=== PATIENT | female | born 1940 | race Asian ===

== ENCOUNTER 2023-01-25 19:00 | Inpatient (IN) | payer MEDICARE, MEDICAID ==
[~2023-01-25] VITALS: Ht 160 cm; Wt 64.0 kg
[2023-01-25 19:30] VITALS: BP 139/88; PULSE 63; RESP 18; TEMP 97.7
[2023-01-25 20:00] VITALS: BP 139/88; PULSE 18; RESP 18; TEMP 97.7
[2023-01-25] MEDS: DICLOFENAC SODIUM 1% GEL 50GM TOP SCH (21:00)
[2023-01-25] MEDS ORDERED: ACETAMINOPHEN 650MG SUPP PR PRN (21:00)
[2023-01-25] MEDS ORDERED: CLONIDINE 0.1MG TABLET PO PRN (21:00)
[2023-01-25] MEDS: AMPICILLIN 2,000 MG in SODIUM CHLORIDE 0.9% 100 ML IV SCH (22:00)
[2023-01-25] MEDS: PANTOPRAZOLE 40MG DR TABLET PO SCH (22:00)
[2023-01-26 00:17] VITALS: PULSE 87; RESP 16; O2SAT 97
[2023-01-26] MEDS: IPRATROPIUM/ALBUTEROL 0.5-3(2.5)MG/3ML NEB HHN SCH ×5 (00:17→21:33)
[2023-01-26] MEDS: AMPICILLIN 2,000 MG in SODIUM CHLORIDE 0.9% 100 ML IV SCH ×3 (06:08→21:16)
[2023-01-26 06:48] LABS: HEMATOCRIT. 33.3 % (36.0-48.0); HEMOGLOBIN. 11.5 g/dL (12.0-16.0); MEAN CORPUSCULAR HEMOGLOBIN 32.1 pg (28.0-32.0); MEAN CORPUSCULAR HGB CONC 34.5 g/dL (31.0-37.0); PLATELET 217 x1000/uL (130-400); RED BLOOD CELL COUNT 3.58 mill/uL (4.2-5.4); RED CELL DISTRIBUTION WIDTH 13.2 % (11.6-14.6); WHITE BLOOD COUNT 16.6 x1000/uL (4.5-11.0)
[2023-01-26 06:53] LABS: DIFFERENTIAL COMMENT 1
[2023-01-26 07:19] LABS: CHLORIDE 107 mEq/L (98-107); INDEX HEMOLYSI 1 (1-3); INDEX ICTERIC 1 (1-4); INDEX LIPEMIC 1 (1-3); POTASSIUM 3.5 mEq/L (3.5-5.1); SODIUM 139 mEq/L (136-145)
[2023-01-26 07:26] LABS: ALANINE AMINOTRANSFERASE 31 IU/L (13-61); ALBUMIN 1.9 g/dL (3.4-5.0); ASPARTATE AMINOTRANSFERASE 19 IU/L (15-37); BILIRUBIN TOTAL 0.9 mg/dL (0.1-1.0); CALCIUM 8.1 mg/dL (8.5-10.1); CARBON DIOXIDE 29 mEq/L (21-32); CREATININE 0.8 mg/dL (0.6-1.3); GLUCOSE 67 mg/dL (70-105); PREALBUMIN 17.7 mg/dL (20.0-40.0); PROTEIN TOTAL 4.8 g/dL (6.0-8.3); UREA NITROGEN BLOOD 26 mg/dL (7-21)
[2023-01-26 08:00] VITALS: BP 148/64; PULSE 69; RESP 18; TEMP 97.2
[2023-01-26] MEDS: PANTOPRAZOLE 40MG DR TABLET PO SCH ×2 (08:00→20:56)
[2023-01-26] MEDS: ENOXAPARIN 30MG/0.3ML SYR SUBCUT SCH (09:00)
[2023-01-26] MEDS: CALCITONIN,SALMON, 3.7 ML NASAL SPRAY ONENSTRL SCH (09:00)
[2023-01-26] MEDS: PREDNISONE 20MG TABLET PO SCH (09:00)
[2023-01-26] MEDS: ACETAMINOPHEN 500MG TABLET PO SCH ×3 (09:00→15:34)
[2023-01-26] MEDS: DICLOFENAC SODIUM 1% GEL 50GM TOP SCH ×4 (09:00→21:16)
[2023-01-26] MEDS: CALCIUM CARBONATE/VITAMIN D3 500MG TABLET PO SCH (09:00)
[2023-01-26] MEDS: LIDOCAINE 5% PATCH TOP SCH (09:00)
[2023-01-26] MEDS: TRAMADOL 50MG TABLET PO PRN (09:35)
[2023-01-26 09:55] VITALS: PULSE 65; RESP 16; O2SAT 98
[2023-01-26] MEDS ORDERED: METHYLPREDNISOLONE SOD SUCC 40MG/ML (ACT-O-VIAL) IV NR (12:00)
[2023-01-26] MEDS ORDERED: NALOXONE HCL 0.4MG/ML VIAL IV PRN (13:15)
[2023-01-26 13:43] VITALS: PULSE 75; RESP 16; O2SAT 97
[2023-01-26] MEDS: BUDESONIDE 0.5MG/2ML NEB HHN SCH ×2 (13:43→21:31)
[2023-01-26 15:45] LABS: PLATELET ESTIMATE NORMAL
[2023-01-26 20:00] VITALS: BP 143/66; PULSE 64; RESP 20; TEMP 97.8
[2023-01-26] MEDS: MONTELUKAST SODIUM 10MG TABLET PO SCH (20:57)
[2023-01-26 21:31] VITALS: PULSE 65; RESP 16; O2SAT 97
[2023-01-27] VITALS (9 sets, daily range): BP systolic 130–140; BP diastolic 52–62; PULSE 60–86; RESP 16–18; TEMP 96.2–97.7; O2SAT 96–99
[2023-01-27] MEDS: IPRATROPIUM/ALBUTEROL 0.5-3(2.5)MG/3ML NEB HHN SCH ×7 (00:21→23:58)
[2023-01-27 05:32] LABS: INDEX HEMOLYSI 1 (1-3)
[2023-01-27 05:35] LABS: AMMONIA 22 uMol/L (<32)
[2023-01-27 06:21] LABS: HEMATOCRIT. 34.1 % (36.0-48.0); HEMOGLOBIN. 11.7 g/dL (12.0-16.0); MEAN CORPUSCULAR HEMOGLOBIN 32.1 pg (28.0-32.0); MEAN CORPUSCULAR HGB CONC 34.3 g/dL (31.0-37.0); MEAN CORPUSCULAR VOLUME 93.7 fL (81.0-99.0); MEAN PLATELET VOLUME 8.3 fl (7.4-10.4); PLATELET 257 x1000/uL (130-400); RED BLOOD CELL COUNT 3.64 mill/uL (4.2-5.4); RED CELL DISTRIBUTION WIDTH 13.9 % (11.6-14.6); WHITE BLOOD COUNT 15.2 x1000/uL (4.5-11.0)
[2023-01-27 06:27] LABS: CHLORIDE 105 mEq/L (98-107); INDEX HEMOLYSI 1 (1-3); INDEX ICTERIC 1 (1-4); INDEX LIPEMIC 1 (1-3); SODIUM 138 mEq/L (136-145)
[2023-01-27 06:28] LABS: DIFFERENTIAL COMMENT 1
[2023-01-27 06:47] LABS: ALANINE AMINOTRANSFERASE 28 IU/L (13-61); ALBUMIN 2.1 g/dL (3.4-5.0); ASPARTATE AMINOTRANSFERASE 11 IU/L (15-37); BILIRUBIN TOTAL 1.1 mg/dL (0.1-1.0); CALCIUM 8.4 mg/dL (8.5-10.1); CARBON DIOXIDE 27 mEq/L (21-32); CREATININE 0.9 mg/dL (0.6-1.3); GLUCOSE 91 mg/dL (70-105); IRON 26 ug/dL (50-175); PROTEIN TOTAL 5.2 g/dL (6.0-8.3); THYROID STIMULATING HORMONE 0.37 uIU/mL (0.36-3.74); TOTAL IRON BINDING CAPACITY 193 ug/dL (250-450); UREA NITROGEN BLOOD 29 mg/dL (7-21)
[2023-01-27] MEDS: AMPICILLIN 2,000 MG in SODIUM CHLORIDE 0.9% 100 ML IV SCH ×3 (06:47→21:41)
[2023-01-27 07:42] LABS: VITAMIN B12 SERUM >2000 pg/mL pg/mL (211-911)
[2023-01-27] MEDS: BUDESONIDE 0.5MG/2ML NEB HHN SCH ×2 (08:13→21:13)
[2023-01-27] MEDS: CALCIUM CARBONATE/VITAMIN D3 500MG TABLET PO SCH (08:38)
[2023-01-27] MEDS: DICLOFENAC SODIUM 1% GEL 50GM TOP SCH ×4 (08:38→21:41)
[2023-01-27] MEDS: ENOXAPARIN 30MG/0.3ML SYR SUBCUT SCH (08:38)
[2023-01-27] MEDS: CALCITONIN,SALMON, 3.7 ML NASAL SPRAY ONENSTRL SCH (08:38)
[2023-01-27] MEDS: LIDOCAINE 5% PATCH TOP SCH (08:39)
[2023-01-27] MEDS: ACETAMINOPHEN 500MG TABLET PO SCH ×3 (08:39→16:37)
[2023-01-27] MEDS: PREDNISONE 20MG TABLET PO SCH (08:39)
[2023-01-27] MEDS: PANTOPRAZOLE 40MG DR TABLET PO SCH (08:39)
[2023-01-27] MEDS ORDERED: LACTULOSE 20G/30ML UDC PO PRN (13:00)
[2023-01-27] MEDS ORDERED: BISACODYL 10MG SUPP PR PRN (13:00)
[2023-01-27] MEDS ORDERED: MAGNESIUM HYDROXIDE 400MG/5ML 30ML UDC PO PRN (13:00)
[2023-01-27 14:36] LABS: FOLIC ACID (FOLATE) SERUM > 20.00 ng/mL (>5.38); INDEX HEMOLYSI 1 (1-3)
[2023-01-27] MEDS: MONTELUKAST SODIUM 10MG TABLET PO SCH (17:00)
[2023-01-27] MEDS: DOCUSATE SODIUM 100MG CAPSULE PO SCH (17:00)
[2023-01-27 17:46] LABS: PLATELET ESTIMATE NORMAL
[2023-01-27 18:44] LABS: FERRITIN 424 ng/mL (10-291)
[2023-01-27] MEDS: SENNOSIDES 8.6MG TABLET PO SCH (21:00)
[2023-01-28] VITALS (7 sets, daily range): BP systolic 13–129; BP diastolic 57–59; PULSE 69–80; RESP 17–20; TEMP 97.4–99; O2SAT 95–99
[2023-01-28] MEDS: IPRATROPIUM/ALBUTEROL 0.5-3(2.5)MG/3ML NEB HHN SCH ×5 (04:34→21:58)
[2023-01-28] MEDS: AMPICILLIN 2,000 MG in SODIUM CHLORIDE 0.9% 100 ML IV SCH ×3 (06:53→22:56)
[2023-01-28] MEDS: BUDESONIDE 0.5MG/2ML NEB HHN SCH ×2 (07:38→21:58)
[2023-01-28] MEDS: CALCITONIN,SALMON, 3.7 ML NASAL SPRAY ONENSTRL SCH (09:00)
[2023-01-28] MEDS: ENOXAPARIN 30MG/0.3ML SYR SUBCUT SCH (09:27)
[2023-01-28] MEDS: ACETAMINOPHEN 500MG TABLET PO SCH ×3 (09:27→17:31)
[2023-01-28] MEDS: DOCUSATE SODIUM 100MG CAPSULE PO SCH ×2 (09:27→17:31)
[2023-01-28] MEDS: LIDOCAINE 5% PATCH TOP SCH (09:28)
[2023-01-28] MEDS: PREDNISONE 10MG TABLET PO SCH (09:28)
[2023-01-28] MEDS: FAMOTIDINE 20MG TABLET PO SCH (09:28)
[2023-01-28] MEDS: CALCIUM CARBONATE/VITAMIN D3 500MG TABLET PO SCH (09:28)
[2023-01-28] MEDS: DICLOFENAC SODIUM 1% GEL 50GM TOP SCH ×4 (09:29→22:55)
[2023-01-28] MEDS: ERGOCALCIFEROL 50000UNITS CAPSULE PO SCH (14:30)
[2023-01-28] MEDS: MONTELUKAST SODIUM 10MG TABLET PO SCH (17:31)
[2023-01-28] MEDS: SENNOSIDES 8.6MG TABLET PO SCH (21:00)
[2023-01-29] VITALS (7 sets, daily range): BP systolic 128–166; BP diastolic 65–72; PULSE 72–77; RESP 14–22; TEMP 97.4–98.6; O2SAT 97–99
[2023-01-29] MEDS: IPRATROPIUM/ALBUTEROL 0.5-3(2.5)MG/3ML NEB HHN SCH ×5 (05:22→21:41)
[2023-01-29] MEDS: AMPICILLIN 2,000 MG in SODIUM CHLORIDE 0.9% 100 ML IV SCH ×3 (06:57→22:30)
[2023-01-29] MEDS: ACETAMINOPHEN 500MG TABLET PO SCH ×3 (07:18→17:08)
[2023-01-29] MEDS: BUDESONIDE 0.5MG/2ML NEB HHN SCH ×2 (09:08→21:41)
[2023-01-29] MEDS: CALCITONIN,SALMON, 3.7 ML NASAL SPRAY ONENSTRL SCH (09:32)
[2023-01-29] MEDS: DOCUSATE SODIUM 100MG CAPSULE PO SCH ×2 (09:33→17:08)
[2023-01-29] MEDS: CALCIUM CARBONATE/VITAMIN D3 500MG TABLET PO SCH (09:33)
[2023-01-29] MEDS: PREDNISONE 10MG TABLET PO SCH (09:33)
[2023-01-29] MEDS: FAMOTIDINE 20MG TABLET PO SCH (09:33)
[2023-01-29] MEDS: ENOXAPARIN 30MG/0.3ML SYR SUBCUT SCH (09:33)
[2023-01-29] MEDS: DICLOFENAC SODIUM 1% GEL 50GM TOP SCH ×4 (09:33→20:54)
[2023-01-29] MEDS: LIDOCAINE 5% PATCH TOP SCH (09:58)
[2023-01-29] MEDS ORDERED: ACETYLCYSTEINE 200MG/ML 20% VIAL 4ML INH NR (12:15)
[2023-01-29] MEDS ORDERED: ACETYLCYSTEINE 100MG/ML 10% VIAL 4ML INH NR (13:00)
[2023-01-29] MEDS: MONTELUKAST SODIUM 10MG TABLET PO SCH (17:08)
[2023-01-29] MEDS: SENNOSIDES 8.6MG TABLET PO SCH (20:54)
[2023-01-30] VITALS (8 sets, daily range): BP systolic 136–153; BP diastolic 63–70; PULSE 79–91; RESP 16–22; TEMP 97.7–98.4; O2SAT 96–99
[2023-01-30] MEDS: IPRATROPIUM/ALBUTEROL 0.5-3(2.5)MG/3ML NEB HHN SCH ×6 (01:15→21:36)
[2023-01-30] MEDS: AMPICILLIN 2,000 MG in SODIUM CHLORIDE 0.9% 100 ML IV SCH ×3 (06:27→21:31)
[2023-01-30] MEDS: TRAMADOL 50MG TABLET PO PRN (06:29)
[2023-01-30 07:38] LABS: HEMATOCRIT. 31.6 % (36.0-48.0); MEAN CORPUSCULAR HEMOGLOBIN 32.7 pg (28.0-32.0); MEAN CORPUSCULAR HGB CONC 34.8 g/dL (31.0-37.0); MEAN CORPUSCULAR VOLUME 94.2 fL (81.0-99.0); MEAN PLATELET VOLUME 7.9 fl (7.4-10.4); PLATELET 337 x1000/uL (130-400); RED BLOOD CELL COUNT 3.36 mill/uL (4.2-5.4); RED CELL DISTRIBUTION WIDTH 13.8 % (11.6-14.6); WHITE BLOOD COUNT 10.4 x1000/uL (4.5-11.0)
[2023-01-30 07:53] LABS: DIFFERENTIAL COMMENT 1
[2023-01-30] MEDS: BUDESONIDE 0.5MG/2ML NEB HHN SCH ×2 (08:22→21:36)
[2023-01-30] MEDS: CALCITONIN,SALMON, 3.7 ML NASAL SPRAY ONENSTRL SCH (09:00)
[2023-01-30] MEDS: DICLOFENAC SODIUM 1% GEL 50GM TOP SCH ×4 (09:00→21:31)
[2023-01-30] MEDS: LIDOCAINE 5% PATCH TOP SCH (09:00)
[2023-01-30] MEDS: CALCIUM CARBONATE/VITAMIN D3 500MG TABLET PO SCH (09:06)
[2023-01-30] MEDS: DOCUSATE SODIUM 100MG CAPSULE PO SCH ×2 (09:06→17:01)
[2023-01-30] MEDS: FAMOTIDINE 20MG TABLET PO SCH (09:06)
[2023-01-30] MEDS: PREDNISONE 10MG TABLET PO SCH (09:06)
[2023-01-30] MEDS: ENOXAPARIN 30MG/0.3ML SYR SUBCUT SCH (09:07)
[2023-01-30 09:16] LABS: CALCIUM 8.5 mg/dL (8.5-10.1); CREATININE 0.9 mg/dL (0.6-1.3); POTASSIUM 3.6 mEq/L (3.5-5.1)
[2023-01-30 13:48] LABS: PLATELET ESTIMATE NORMAL
[2023-01-30] MEDS: MONTELUKAST SODIUM 10MG TABLET PO SCH (17:01)
[2023-01-30] MEDS: SENNOSIDES 8.6MG TABLET PO SCH (21:30)
[2023-01-31 00:13] VITALS: PULSE 79; RESP 18
[2023-01-31] MEDS: IPRATROPIUM/ALBUTEROL 0.5-3(2.5)MG/3ML NEB HHN SCH ×3 (00:13→20:16)
[2023-01-31] MEDS: AMPICILLIN 2,000 MG in SODIUM CHLORIDE 0.9% 100 ML IV SCH ×3 (05:27→21:08)
[2023-01-31 07:10] VITALS: PULSE 90; RESP 20
[2023-01-31] MEDS: BUDESONIDE 0.5MG/2ML NEB HHN SCH ×2 (07:10→10:15)
[2023-01-31 07:32] LABS: POTASSIUM 3.5 mEq/L (3.5-5.1)
[2023-01-31 07:39] LABS: CALCIUM 8.3 mg/dL (8.5-10.1); CREATININE 0.9 mg/dL (0.6-1.3)
[2023-01-31 07:52] VITALS: BP 159/79; PULSE 85; RESP 20; TEMP 97.3
[2023-01-31 08:38] LABS: HEMATOCRIT. 30.5 % (36.0-48.0); HEMOGLOBIN. 10.5 g/dL (12.0-16.0); MEAN CORPUSCULAR HEMOGLOBIN 32.5 pg (28.0-32.0); MEAN CORPUSCULAR HGB CONC 34.3 g/dL (31.0-37.0); MEAN CORPUSCULAR VOLUME 94.7 fL (81.0-99.0); MEAN PLATELET VOLUME 7.9 fl (7.4-10.4); PLATELET 343 x1000/uL (130-400); RED BLOOD CELL COUNT 3.22 mill/uL (4.2-5.4); RED CELL DISTRIBUTION WIDTH 13.7 % (11.6-14.6); WHITE BLOOD COUNT 9.6 x1000/uL (4.5-11.0)
[2023-01-31 08:40] LABS: DIFFERENTIAL COMMENT 1
[2023-01-31] MEDS: ENOXAPARIN 30MG/0.3ML SYR SUBCUT SCH (08:44)
[2023-01-31] MEDS: PREDNISONE 10MG TABLET PO SCH (08:45)
[2023-01-31] MEDS: CALCIUM CARBONATE/VITAMIN D3 500MG TABLET PO SCH (08:45)
[2023-01-31] MEDS: DOCUSATE SODIUM 100MG CAPSULE PO SCH ×2 (08:45→17:11)
[2023-01-31] MEDS: FAMOTIDINE 20MG TABLET PO SCH (08:45)
[2023-01-31] MEDS: ACETAMINOPHEN 500MG TABLET PO SCH ×3 (08:45→17:11)
[2023-01-31] MEDS: LIDOCAINE 5% PATCH TOP SCH (09:12)
[2023-01-31] MEDS: DICLOFENAC SODIUM 1% GEL 50GM TOP SCH ×4 (09:12→21:08)
[2023-01-31] MEDS: CALCITONIN,SALMON, 3.7 ML NASAL SPRAY ONENSTRL SCH (09:12)
[2023-01-31] MEDS ORDERED: IPRATROPIUM/ALBUTEROL 0.5-3(2.5)MG/3ML NEB HHN PRN (12:30)
[2023-01-31] MEDS ORDERED: POTASSIUM CHLORIDE 20MEQ/PACKET PO NR (13:00)
[2023-01-31 15:03] VITALS: PULSE 78; RESP 18
[2023-01-31 16:53] LABS: PLATELET ESTIMATE NORMAL
[2023-01-31] MEDS: MONTELUKAST SODIUM 10MG TABLET PO SCH (17:11)
[2023-01-31 20:00] VITALS: BP 158/77; PULSE 76; RESP 18; TEMP 98.1
[2023-01-31 20:15] VITALS: PULSE 76; RESP 18; O2SAT 98
[2023-01-31] MEDS: SENNOSIDES 8.6MG TABLET PO SCH (21:08)
[2023-02-01 08:00] VITALS: BP 155/72; PULSE 92; RESP 18; TEMP 97.4
[2023-02-01] MEDS: LIDOCAINE 5% PATCH TOP SCH (09:00)
[2023-02-01] MEDS: ACETAMINOPHEN 500MG TABLET PO SCH ×3 (09:10→17:08)
[2023-02-01] MEDS: FAMOTIDINE 20MG TABLET PO SCH (09:10)
[2023-02-01] MEDS: DOCUSATE SODIUM 100MG CAPSULE PO SCH ×2 (09:10→17:08)
[2023-02-01] MEDS: ENOXAPARIN 30MG/0.3ML SYR SUBCUT SCH (09:11)
[2023-02-01] MEDS: PREDNISONE 10MG TABLET PO SCH (09:11)
[2023-02-01] MEDS: CALCIUM CARBONATE/VITAMIN D3 500MG TABLET PO SCH (09:11)
[2023-02-01] MEDS: CALCITONIN,SALMON, 3.7 ML NASAL SPRAY ONENSTRL SCH (09:11)
[2023-02-01] MEDS: DICLOFENAC SODIUM 1% GEL 50GM TOP SCH ×4 (09:18→21:39)
[2023-02-01] MEDS: IPRATROPIUM/ALBUTEROL 0.5-3(2.5)MG/3ML NEB HHN SCH ×3 (10:15→20:24)
[2023-02-01 13:35] VITALS: PULSE 81; RESP 22; O2SAT 97
[2023-02-01] MEDS: MONTELUKAST SODIUM 10MG TABLET PO SCH (17:08)
[2023-02-01 20:00] VITALS: BP 137/68; PULSE 75; RESP 18; TEMP 97.7
[2023-02-01] MEDS: BUDESONIDE 0.5MG/2ML NEB HHN SCH (20:23)
[2023-02-01 20:25] VITALS: PULSE 72; RESP 20; O2SAT 99
[2023-02-01] MEDS: SENNOSIDES 8.6MG TABLET PO SCH (21:39)
[2023-02-02] MEDS: IPRATROPIUM/ALBUTEROL 0.5-3(2.5)MG/3ML NEB HHN SCH ×4 (01:17→21:00)
[2023-02-02 01:19] VITALS: PULSE 70; RESP 20; O2SAT 98
[2023-02-02 07:22] VITALS: PULSE 70; RESP 24; O2SAT 98
[2023-02-02] MEDS: BUDESONIDE 0.5MG/2ML NEB HHN SCH ×2 (07:22→21:00)
[2023-02-02 08:00] VITALS: BP 159/84; PULSE 77; RESP 20; TEMP 97.1
[2023-02-02] MEDS: LIDOCAINE 5% PATCH TOP SCH (09:00)
[2023-02-02] MEDS: CALCITONIN,SALMON, 3.7 ML NASAL SPRAY ONENSTRL SCH (09:00)
[2023-02-02] MEDS: DICLOFENAC SODIUM 1% GEL 50GM TOP SCH ×4 (09:00→21:00)
[2023-02-02] MEDS: CALCIUM CARBONATE/VITAMIN D3 500MG TABLET PO SCH (09:27)
[2023-02-02] MEDS: FAMOTIDINE 20MG TABLET PO SCH (09:27)
[2023-02-02] MEDS: DOCUSATE SODIUM 100MG CAPSULE PO SCH ×2 (09:27→17:41)
[2023-02-02] MEDS: ENOXAPARIN 30MG/0.3ML SYR SUBCUT SCH (09:28)
[2023-02-02] MEDS: ACETAMINOPHEN 500MG TABLET PO SCH ×3 (09:28→17:41)
[2023-02-02 16:05] VITALS: PULSE 80; RESP 22; O2SAT 97
[2023-02-02] MEDS: MONTELUKAST SODIUM 10MG TABLET PO SCH (17:41)
[2023-02-02 20:00] VITALS: BP 147/69; PULSE 77; RESP 18; TEMP 96.8
[2023-02-02 21:00] VITALS: PULSE 79; RESP 18; O2SAT 94
[2023-02-02] MEDS: SENNOSIDES 8.6MG TABLET PO SCH (21:00)
[2023-02-03 07:53] VITALS: PULSE 91; RESP 18; O2SAT 97
[2023-02-03] MEDS: BUDESONIDE 0.5MG/2ML NEB HHN SCH ×2 (07:53→22:15)
[2023-02-03] MEDS: IPRATROPIUM/ALBUTEROL 0.5-3(2.5)MG/3ML NEB HHN SCH ×3 (07:53→22:15)
[2023-02-03 08:00] VITALS: BP 152/61; PULSE 88; RESP 17; TEMP 96.6
[2023-02-03] MEDS: LIDOCAINE 5% PATCH TOP SCH (09:00)
[2023-02-03] MEDS: CALCITONIN,SALMON, 3.7 ML NASAL SPRAY ONENSTRL SCH (09:00)
[2023-02-03] MEDS: DICLOFENAC SODIUM 1% GEL 50GM TOP SCH ×4 (09:00→20:23)
[2023-02-03] MEDS: FAMOTIDINE 20MG TABLET PO SCH (09:17)
[2023-02-03] MEDS: ACETAMINOPHEN 500MG TABLET PO SCH ×3 (09:18→17:12)
[2023-02-03] MEDS: CALCIUM CARBONATE/VITAMIN D3 500MG TABLET PO SCH (09:18)
[2023-02-03] MEDS: DOCUSATE SODIUM 100MG CAPSULE PO SCH ×2 (09:18→17:12)
[2023-02-03] MEDS: ENOXAPARIN 30MG/0.3ML SYR SUBCUT SCH (09:19)
[2023-02-03 14:13] VITALS: PULSE 93; RESP 18; O2SAT 98
[2023-02-03] MEDS: MONTELUKAST SODIUM 10MG TABLET PO SCH (17:12)
[2023-02-03 20:00] VITALS: BP 155/71; PULSE 84; RESP 17; TEMP 97.9
[2023-02-03] MEDS: SENNOSIDES 8.6MG TABLET PO SCH (20:22)
[2023-02-03 22:15] VITALS: PULSE 80; RESP 16; O2SAT 94
[2023-02-04] MEDS: IPRATROPIUM/ALBUTEROL 0.5-3(2.5)MG/3ML NEB HHN SCH ×3 (03:52→21:46)
[2023-02-04 07:40] VITALS: PULSE 75; RESP 16
[2023-02-04] MEDS: BUDESONIDE 0.5MG/2ML NEB HHN SCH ×2 (07:40→21:40)
[2023-02-04 07:44] LABS: BASOPHILS % 1.3 % (0.0-2.0); CALCIUM 8.6 mg/dL (8.7-10.4); CARBON DIOXIDE 26 mEq/L (21-32); CHLORIDE 103 mEq/L (98-107); CREATININE 0.8 mg/dL (0.6-1.0); GLUCOSE 63 mg/dL (70-105); HEMATOCRIT. 31.9 % (36.0-48.0); HEMOGLOBIN. 11.1 g/dL (12.0-16.0); LYMPHOCYTES % 10.2 % (20.0-50.0); MEAN CORPUSCULAR HGB CONC 34.7 g/dL (31.0-37.0); MEAN CORPUSCULAR VOLUME 95.1 fL (81.0-99.0); MEAN PLATELET VOLUME 7.4 fl (7.4-10.4); MONOCYTES % 9.9 % (2.0-8.0); NEUTROPHILS % 75.6 % (40.0-76.0); PLATELET 293 x1000/uL (130-400); POTASSIUM 3.4 mEq/L (3.5-5.1); RED BLOOD CELL COUNT 3.36 mill/uL (4.2-5.4); SODIUM 140 mEq/L (136-145); UREA NITROGEN BLOOD 13 mg/dL (9-23); WHITE BLOOD COUNT 7.5 x1000/uL (4.5-11.0)
[2023-02-04 07:57] VITALS: BP 150/72; PULSE 78; RESP 18; TEMP 97.1
[2023-02-04] MEDS: DOCUSATE SODIUM 100MG CAPSULE PO SCH ×2 (08:08→16:55)
[2023-02-04] MEDS: FAMOTIDINE 20MG TABLET PO SCH (08:08)
[2023-02-04] MEDS: ERGOCALCIFEROL 50000UNITS CAPSULE PO SCH (08:08)
[2023-02-04] MEDS: CALCIUM CARBONATE/VITAMIN D3 500MG TABLET PO SCH (08:08)
[2023-02-04] MEDS: ACETAMINOPHEN 500MG TABLET PO SCH ×3 (08:08→16:55)
[2023-02-04] MEDS: CALCITONIN,SALMON, 3.7 ML NASAL SPRAY ONENSTRL SCH (08:08)
[2023-02-04] MEDS: ENOXAPARIN 30MG/0.3ML SYR SUBCUT SCH (08:09)
[2023-02-04] MEDS: LIDOCAINE 5% PATCH TOP SCH (09:00)
[2023-02-04] MEDS: DICLOFENAC SODIUM 1% GEL 50GM TOP SCH ×4 (09:00→21:00)
[2023-02-04] MEDS ORDERED: POTASSIUM CHLORIDE 20MEQ/PACKET PO SCH (09:45)
[2023-02-04] MEDS: MONTELUKAST SODIUM 10MG TABLET PO SCH (16:55)
[2023-02-04 20:00] VITALS: BP 137/57; PULSE 83; RESP 18; TEMP 97.6
[2023-02-04] MEDS: SENNOSIDES 8.6MG TABLET PO SCH (21:00)
[2023-02-04 21:45] VITALS: PULSE 68; RESP 18
[2023-02-05] MEDS: IPRATROPIUM/ALBUTEROL 0.5-3(2.5)MG/3ML NEB HHN SCH ×3 (01:00→15:12)
[2023-02-05 07:42] VITALS: PULSE 87; RESP 20; O2SAT 95
[2023-02-05 08:00] VITALS: BP 161/76; PULSE 87; RESP 18; TEMP 97
[2023-02-05] MEDS: DOCUSATE SODIUM 100MG CAPSULE PO SCH (08:52)
[2023-02-05] MEDS: CALCITONIN,SALMON, 3.7 ML NASAL SPRAY ONENSTRL SCH (08:52)
[2023-02-05] MEDS: CALCIUM CARBONATE/VITAMIN D3 500MG TABLET PO SCH (08:52)
[2023-02-05] MEDS: FAMOTIDINE 20MG TABLET PO SCH (08:52)
[2023-02-05] MEDS: ACETAMINOPHEN 500MG TABLET PO SCH ×2 (08:53→13:00)
[2023-02-05] MEDS: ENOXAPARIN 30MG/0.3ML SYR SUBCUT SCH (08:53)
[2023-02-05] MEDS: LIDOCAINE 5% PATCH TOP SCH (08:57)
[2023-02-05] MEDS: DICLOFENAC SODIUM 1% GEL 50GM TOP SCH ×2 (08:57→13:00)
[2023-02-05 13:59] VITALS: BP 135/66; PULSE 87; TEMP 97; O2SAT 98
[2023-02-05 15:12] VITALS: PULSE 80; RESP 20
[2023-02-05] MEDS ORDERED: LOPERAMIDE 2MG/15ML UDC PO NR (15:15)
== END 2023-02-05 18:25 | disposition home health service (06) | DRG 70 ==
PROVIDERS: ADMIT Physical Medicine & Rehabilitation Spinal Cord Injury Medicine; ATTEND Internal Medicine
DX: G93.41 Metabolic encephalopathy (principal); A41.51 Sepsis due to Escherichia coli [E. coli]; G82.50 Quadriplegia, unspecified; R65.21 Severe sepsis with septic shock; N17.0 Acute kidney failure with tubular necrosis; J18.9 Pneumonia, unspecified organism; N39.0 Urinary tract infection, site not specified; N20.2 Calculus of kidney with calculus of ureter; E44.0 Moderate protein-calorie malnutrition; E87.0 Hyperosmolality and hypernatremia; E87.20 Acidosis, unspecified; J98.11 Atelectasis; M62.82 Rhabdomyolysis; K56.0 Paralytic ileus; F03.93 Unspecified dementia, unspecified severity, with mood disturbance; J45.909 Unspecified asthma, uncomplicated; M48.04 Spinal stenosis, thoracic region; G89.29 Other chronic pain; I50.9 Heart failure, unspecified; I11.0 Hypertensive heart disease with heart failure; E78.5 Hyperlipidemia, unspecified; E86.1 Hypovolemia; B95.2 Enterococcus as the cause of diseases classified elsewhere; R13.10 Dysphagia, unspecified; K86.9 Disease of pancreas, unspecified; R53.81 Other malaise; R26.9 Unspecified abnormalities of gait and mobility; D64.9 Anemia, unspecified; E55.9 Vitamin D deficiency, unspecified; E86.0 Dehydration; R74.8 Abnormal levels of other serum enzymes; M48.02 Spinal stenosis, cervical region; E87.6 Hypokalemia; R09.02 Hypoxemia; M51.36 Other intervertebral disc degeneration, lumbar region; M51.37 Other intervertebral disc degeneration, lumbosacral region; R69 Illness, unspecified; D72.829 Elevated white blood cell count, unspecified; E88.09 Other disorders of plasma-protein metabolism, not elsewhere classified; I95.9 Hypotension, unspecified; R41.82 Altered mental status, unspecified; R11.2 Nausea with vomiting, unspecified; Z68.25 Body mass index [BMI] 25.0-25.9, adult; Z91.81 History of falling
CPT/HCPCS: 36415; 80048; 80053; 82140; 82306; 82607; 82728; 82746; 83036; 83540; 83550; 84134; 84145; 84443; 85025; 92523; 92610; 93970; 94640; 97110; 97116; 97162; 97166; 97530; 97535; 97542; 97760; J0290; J1650; J2920; J7050; J7512; J7608; J7626